=== PATIENT | male | born 1975 | race Caucasian/White ===

== ENCOUNTER → 2016-04-28 | Outpatient (CLI) | payer BC ==
[~2016-04-28] MED LIST: ACET500C14 PO; ASPI81TA28 PO; DEXT1LIQ58 PO; OPTIRAY 320 IV PRN
--- NOTE | 2016-04-28 14:23 | DIAGNOSTIC IMAGING REPORT ---
CT OF THE ABDOMEN AND PELVIS WITH CONTRAST CLINICAL HISTORY: Left lower quadrant pain. Evaluate for acute diverticulitis. COMPARISON STUDY: CT of the abdomen and pelvis April 10, 2015. TECHNIQUE: Following IV administration of 93 mL of [id number], axial images of the abdomen and pelvis were obtained from the lung bases to the proximal femurs. Images were reviewed in the axial, sagittal, and coronal planes. IV contrast was administered without complication. Oral contrast was administered. CT DOSE: 1758.82 mGy.cm FINDINGS: Lung bases are clear. There is fatty infiltration of the liver. The spleen, adrenal glands, pancreas are normal. There is a 3 mm calculus within the lower pole of the left kidney. There is no hydronephrosis. No ureteral calculi are identified. A few subcentimeter renal lesions are too small to characterize but likely reflect cysts. The appendix is normal. There is no evidence for a bowel obstruction. There is sigmoid diverticulosis. There is an inflamed diverticulum of the proximal sigmoid colon with moderate adjacent infiltration. There is no free air or abscess. No lymphadenopathy is present. No suspicious skeletal lesions are present. There are post surgical findings of the lumbosacral spine. IMPRESSION: 1. Acute sigmoid diverticulitis. No free air or abscess. Mild to moderate associated inflammation. 2. 3 mm left renal calculus. No ureteral calculi. No hydronephrosis. 3. Fatty liver. Electronically signed by: Jason Spaulding M.D. 04/28/2016 2:22 PM Dictated Date/Time: 04/28/2016 2:16 PM
== END | disposition home or self-care (01) ==
LOC: C.CTS 12:09
PROVIDERS: ATTEND Family Medicine
DX: K57.32 Diverticulitis of large intestine without perforation or abscess without bleeding (principal); N20.0 Calculus of kidney; K76.0 Fatty (change of) liver, not elsewhere classified